=== PATIENT | female | born 1985 | race Caucasian/White ===

== ENCOUNTER → 2017-01-29 | Outpatient (CLI) | payer OTHER ==
[~2017-01-29] MED LIST: BCPILLS PO; BND25 PO; CHL4 PO; COLE1TAB PO; FLUO40CA8 PO; METF500T PO; MONT1TAB3 PO; MULTTAB58 PO; OMEP20CA9 PO
[2017-01-29 13:43] LABS: ALT/SGPT 143 U/L (12-78); BLOOD UREA NITROGEN 11 mg/dl (7-18); BUN/CREATININE RATIO 19.8 (10-20); CALCIUM 8.8 mg/dl (8.5-10.1); CARBON DIOXIDE 22 mmol/L (21-32); CHLORIDE 106 mmol/L (98-107); CHOLESTEROL 251 mg/dl (0-200); CREATININE 0.55 mg/dl (0.60-1.20); GLUCOSE 86 mg/dl (70-99); POTASSIUM 3.8 mmol/L (3.5-5.1); SODIUM 137 mmol/L (136-145); TRIGLYCERIDES 164 mg/dl (0-150); VERY LOW DENSITY LIPOPROT CALC 33 mg/dl
[2017-01-29 13:47] LABS: ALB/GLOB RATIO 0.7 (0.9-2); ALKALINE PHOSPHATASE 60 U/L (45-117); AST/SGOT 164 U/L (15-37); CHOLESTEROL/HDL RATIO 7.2; HDL CHOLESTEROL 35 mg/dl; LDL CHOLESTEROL CALCULATED 183 mg/dl
== END | disposition home or self-care (01) ==
LOC: C.LAB 11:59
PROVIDERS: ATTEND Nurse Practitioner
DX: Z00.00 Encounter for general adult medical examination without abnormal findings (principal)

== ENCOUNTER → 2017-06-19 | Day surgery (SDC) | payer OTHER ==
[2017-06-08 11:15] VITALS: Ht 167.6 cm; Wt 128.2 kg
[~2017-06-19] VITALS: Ht 167.6 cm; Wt 128.2 kg
[~2017-06-19] MED LIST changes: -BND25 PO; -CHL4 PO; +CHLO4TAB PO; -COLE1TAB PO; +HYDR-5688 PO; +HYDROCODONE/ACETAMIN 5/325MG TAB PO PRN; +LIDOCAINE HCL 1% 20 ML VIAL ONE; -OMEP20CA9 PO; +PRAZ2CAP2 PO; +PRT/20 PO; +SODIUM CHLORIDE 0.9% 1000ML 1,000 ML IV SCH; +TOPI25TA99 PO; +VNTHFA/IN INH
--- NOTE | 2017-06-19 06:50 | History & Physical Bridge - [place] ---
H&P Re-Evaluation Bridge Note: I have examined the patient, reviewed the History & Physical and in the interval since the performance of the History & Physical I have noted the following changes of clinical significance: No changes noted ASA 2
--- NOTE | 2017-06-19 07:36 | [facility] Operative Report ---
Operative Report Operative Date Jun 19, 2017. Pre-Operative Diagnosis epidermal cyst Post-Operative Diagnosis same Procedure(s) Performed excision epidermal cyst/ sebaceous cyst Surgeon Puckett Findings small cyst Anesthesia local Complication(s) None Disposition Recovery Room / PACU I attest to the content of the Intraoperative Record and any orders documented therein. Any exceptions are noted below.
[2017-06-19 07:38] VITALS: PULSE 80; TEMP 37.1
--- NOTE | 2017-06-19 07:41 | Discharge Instructions-SurgCtr ---
Discharge Instructions Date of Service Jun 19, 2017. Visit Reason for Visit: Epidermal Inclusion Cyst, Back Discharge Discharge Diagnosis / Problem: epidermal cyst Discharge Goals Goal(s): Decrease discomfort, Improve function, Improve disease control Activity Recommendations Activity Limitations: as noted below Lifting Limitations: no more than 25 pounds Exercise/Sports Limitations: until after follow-up appointment May Resume Sexual Activity: when tolerated Shower/Bathe: tomorrow Driving or Machine Use: no limitations Anesthesia . Post Anesthesia Instructions: If you have had General Anesthesia or IV Sedation: * Do not drive today. * Resume driving when surgeon permits. * Do not make important decisions or sign legal documents today. * Call surgeon for: 1. Temperature elevations greater than 101 degrees F. 2. Uncontrollable pain. 3. Excessive bleeding. 4. Persistent nausea and vomiting. 5. Medication intolerance (nausea, vomiting or rash). * For nausea and vomiting use only clear liquids such as: tea, soda, bouillon until nausea subsides, then gradually increase diet as tolerated. * If you have any concerns or questions, call your surgeon's office. If physician is unavailable and it is an emergency, call 911 or go to the nearest emergency room. . Instructions / Follow-Up Instructions / Follow-Up SPECIAL CARE INSTRUCTIONS: * Cover incisions and change daily for comfort/drainage. * May use ibuprofen for pain as tolerated. * Expect some swelling and bruising. Call your doctor if: * Temperature above 101 degrees * Pain not relieved by pain medicine ordered * There is increased drainage or redness from any incision * You have any unanswered questions or concerns [phone]. FOLLOW UP VISIT: If not already scheduled, please call the office for a follow-up visit. for next week- some suture removal OFFICE PHONE NUMBER: Dr. Puckett Office Diet Recommendations Home Diet: resume previous diet Procedures Procedures Performed: excision epidermal cyst/ sebaceous cyst Pending Studies Studies pending at discharge: no Medical Emergencies . Who to Call and When: Medical Emergencies: If at any time you feel your situation is an emergency, please call 911 immediately. . Non-Emergent Contact Non-Emergency issues call your: Primary Care Provider, Surgeon . . "Provider Documentation" section prepared by Payam Puckett. .
[2017-06-19 07:53] VITALS: BP 115/58; O2SAT 97
--- NOTE | 2017-06-19 07:58 | OPERATIVE REPORT ---
DATE OF OPERATION: 06/19/2017 PREOPERATIVE DIAGNOSIS: Epidermal cyst. POSTOPERATIVE DIAGNOSIS: Same. NAME OF OPERATION: Excision of epidermal cyst. STAFF SURGEON: Dr. Puckett. ANESTHESIA: 1% plain lidocaine. PROCEDURE: The patient was brought in the operating room and placed on the operating table in the prone position. Her left upper back was prepped and draped in usual fashion. A 2 cm elliptical incision was made around the area of the cyst, carrying dissection down into the subcutaneous tissue, excising the skin and subcutaneous tissue with the cyst. Deep tissue was reapproximated after appropriate hemostasis using 2-0 chromic suture then the skin reapproximated using 5-0 Prolene suture. Dressing applied and patient transferred to recovery area in stable condition. I attest to the content of the Intraoperative Record and any orders documented therein. Any exception s are noted below.
== END | disposition home or self-care (01) ==
LOC: X.SURG 06:11
PROVIDERS: ATTEND Surgery
DX: L72.0 Epidermal cyst (principal); J45.909 Unspecified asthma, uncomplicated; F32.9 Major depressive disorder, single episode, unspecified; K21.9 Gastro-esophageal reflux disease without esophagitis; F51.12 Insufficient sleep syndrome; K58.9 Irritable bowel syndrome, unspecified; E66.01 Morbid (severe) obesity due to excess calories; G47.33 Obstructive sleep apnea (adult) (pediatric); Z80.0 Family history of malignant neoplasm of digestive organs; Z81.8 Family history of other mental and behavioral disorders; Z83.3 Family history of diabetes mellitus; Z80.42 Family history of malignant neoplasm of prostate

== ENCOUNTER → 2017-08-17 | Outpatient (CLI) | payer OTHER ==
[~2017-08-17] MED LIST changes: -HYDROCODONE/ACETAMIN 5/325MG TAB PO PRN; -LIDOCAINE HCL 1% 20 ML VIAL ONE; -SODIUM CHLORIDE 0.9% 1000ML 1,000 ML IV SCH
[2017-08-19 14:22] LABS: ANA SCREEN TC 249X NEGATIVE (NEGATIVE)
== END | disposition home or self-care (01) ==
LOC: C.LAB 14:01
PROVIDERS: ATTEND Family Medicine
DX: M25.50 Pain in unspecified joint (principal)

== ENCOUNTER → 2017-08-28 | Outpatient (CLI) | payer OTHER ==
[2017-08-28 17:50] LABS: TRANSFERRIN 328 mg/dl (200-360)
[2017-09-03 03:31] LABS: ANA SCREEN TC 249X NEGATIVE (NEGATIVE); ANTI-SS-A <1.0 NEG AI (<1.0 NEG); ANTI-SS-B <1.0 NEG AI (<1.0 NEG); COMPLEMENT C3 TC 44859W 211 MG/DL (90-180); COMPLEMENT C4 TC 44982E 27 MG/DL (16-47); PARVOVIRUS IgM INDEX 0.1 (<0.9)
== END | disposition home or self-care (01) ==
LOC: C.LAB1850 16:30
PROVIDERS: ATTEND Internal Medicine Rheumatology
DX: R70.0 Elevated erythrocyte sedimentation rate (principal); M13.0 Polyarthritis, unspecified; R19.7 Diarrhea, unspecified

== ENCOUNTER → 2017-09-11 | Outpatient (CLI) | payer OTHER ==
--- NOTE | 2017-09-11 13:55 | DIAGNOSTIC IMAGING REPORT ---
R HAND MIN 3 VIEWS ROUTINE, L HAND MIN 3 VIEWS ROUTINE CLINICAL HISTORY: 32 years-old Female presenting with M13.0 arthritis. TECHNIQUE: Frontal, oblique, and lateral views of the right and left hands were obtained. COMPARISON: None. FINDINGS: Right hand: No acute fracture or malalignment. No advanced degenerative change. No radiographic soft tissue abnormality. Left hand: No acute fracture or malalignment. No advanced degenerative change. No radiographic soft tissue abnormality. IMPRESSION: No osseous abnormality of the right or left hands. Electronically signed by: Hector Vasquez M.D. 09/11/2017 1:54 PM Dictated Date/Time: 09/11/2017 1:52 PM
== END | disposition home or self-care (01) ==
LOC: C.LAB1850 13:24
PROVIDERS: ATTEND Internal Medicine Rheumatology
DX: M13.0 Polyarthritis, unspecified (principal); R82.90 Unspecified abnormal findings in urine

== ENCOUNTER 2024-02-17 08:23 | Observation (INO) ==
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
[2024-02-17] MEDS: SODIUM CHLORIDE 0.9% 1,000 ML IV SCH ×2 (09:01→10:33)
[2024-02-17 09:16] LABS: iSTAT Creatinine 0.5 mg/dl (0.6-1.3); iSTAT Ionized Calcium 1.04 mmol/l (1.12-1.32); iSTAT Potassium 4.9 mmol/L (3.3-5.0)
[2024-02-17] MEDS: OPTIRAY 320 100ml IV ONE (09:18)
--- NOTE | 2024-02-17 09:39 | CT Scan Report ---
CT abd pelvis IV con only CLINICAL HISTORY: lower abd pain, hypotension TECHNIQUE: Helical axial images of the abdomen and pelvis were obtained and displayed. Automated dose lowering techniques and/or adjustment according to patient size were utilized for this exam. This e xam was performed with intravenous contrast. CT DOSE: 1541.86 mGy.cm COMPARISON: None available at the time of this dictation. FINDINGS: Lower chest: No acute abnormality. Liver: Unremarkable. No focal lesions are seen. Gallbladder and biliary tree: No calcified gallstones. Normal caliber wall. No intra- or extrahepatic biliary ductal dilation. Pancreas: Unremarkable, no focal lesions. Spleen: Unremarkable. Adrenals: Unremarkable. Kidneys and ureters: Unremarkable. Bladder: Limited evaluation due to underdistention. Reproductive organs: Unremarkable. Bowel: The appendix measures 16 mm with thickening of the appendiceal wall. Postsurgical changes of g astric bypass surgery are seen with a small hiatal hernia. Lymph nodes Retroperitoneal: Subcentimeter lymph nodes are noted. Pelvic: Unremarkable. Mesenteric: Unremarkable. Peritoneum: Fat stranding is seen about the appendix without pneumoperitoneum or drainable fluid tyrese ection. Vessels: Unremarkable. Abdominal wall: Unremarkable. Bones: Degenerative changes in the visualized spine. IMPRESSION: Findings compatible with acute appendicitis. No evidence of perforation or abscess formation. ACT 112: Negative or not required by law. Electronically signed by: Herbie Owen M.D. 02/17/2024 9:37 AM
[2024-02-17 09:40] LABS: Basophils # (auto) 0.02 K/uL (0.00-0.20); Basophils % (auto) 0.1 %; Eosinophils # (auto) 0.01 K/uL (0.00-0.50); Eosinophils % (auto) 0.1 %; Hematocrit (blood only) 39.7 % (37.0-47.0); Hemoglobin 12.8 g/dl (12.0-16.0); Immature Granulocytes # (auto) 0.09 K/uL (0.01-0.20); Immature Granulocytes % (auto) 0.5 %; Lymphocytes # (auto) 0.94 K/uL (1.20-3.40); Lymphocytes % (auto) 5.7 %; Mean Corpuscular Hemoglobin 28.4 pg (25.0-34.0); Mean Corpuscular Hgb Conc 32.2 g/dL (32.0-36.0); Mean Corpuscular Volume 88.2 fL (80.0-100.0); Mean Platelet Volume 10.5 fL (9.4-12.4); Monocytes # (auto) 0.71 K/uL (0.11-0.59); Monocytes % (auto) 4.3 %; Neutrophils # (auto) 14.82 K/uL (1.40-6.50); Neutrophils % (auto) 89.3 %; Platelet Count 261 K/uL (130-400); RDW Coefficient of Variation 12.3 % (11.5-14.5); RDW Standard Deviation 39.9 fL (36.4-46.3); White Blood Count 16.59 K/ul (4.8-10.8)
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
[2024-02-17 09:51] LABS: Pregnancy Test, Serum Negative (Negative)
[2024-02-17] MEDS: PIPERACILLIN/TAZOBACTAM 4.5 GM/100 ML BAG IV ONE (09:55)
[2024-02-17 09:57] LABS: Albumin Globulin Ratio 1.5 (0.9-2); Albumin Level 3.8 gm/dl (3.4-5.0); BUN Creatinine Ratio 24.2 (10-20); Bilirubin,Total 0.4 mg/dl (0.2-1.0); Calcium 8.1 mg/dl (8.6-10.3); Creatinine Clr Calc Pharmacy 142.3 ml/min; Est GFR (African American) 133.5 ml/min; Est GFR (Non-African American) 115.2 ml/min; Globulin 2.5 gm/dl (2.5-4.0); Magnesium 1.7 mg/dl (1.7-2.4); Potassium 3.7 mmol/L (3.5-5.1); Total Protein 6.3 gm/dl (6.0-8.3)
[2024-02-17] MEDS: fentaNYL citrate PF 100 MCG/2 ML VIAL IV STA ×2 (09:59→11:15)
[2024-02-17 10:09] LABS: Partial Thromboplastin Ratio 0.8; Partial Thromboplastin Time 22 Seconds (21-31); Prothrombin Time 10.8 Seconds (9.0-12.0)
[2024-02-17] MEDS ORDERED: ONDANSETRON INJ 2 MG/ML 2 ML VIAL IV PRN ×2 (11:36→14:42)
[2024-02-17] MEDS ORDERED: ATROPINE SULFATE 0.1 MG/ML 10ML SYR IV PRN (11:36)
[2024-02-17] MEDS ORDERED: HYDROmorphone INJ 1 MG/ML SYRINGE IV PRN (11:36)
[2024-02-17] MEDS ORDERED: ePHEDrine sulfate 50 MG/ML AMP IV PRN (11:36)
[2024-02-17] MEDS ORDERED: fentaNYL citrate PF 100 MCG/2 ML VIAL IV PRN (11:36)
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
[2024-02-17] MEDS ORDERED: MIDAZOLAM HCL 1 MG/ML 2ML VIAL ONE (12:08)
[2024-02-17] MEDS ORDERED: fentaNYL citrate PF 100 MCG/2 ML VIAL ONE (12:08)
[2024-02-17] MEDS ORDERED: SUGAMMADEX SODIUM 200 MG/2 ML VIAL IV ONE (13:23)
--- NOTE | 2024-02-17 13:33 | Operative Report ---
PG Post Operative Report Pre & Post Diagnosis Operation Date: 02/17/24 08:20 Pre-Op Diagnosis: Acute Appendicitis Post-Op Diagnosis: Acute Appendicitis I identified the patient and participated in the time-out.: Yes Procedure Operation Date: 02/17/24 08:20 Actual Procedures p Laparoscopic Appendectomy(Not Applicable) - Hong Seo DO Surgeon Hong Seo DO Food Critic meagan arzate Estimated Blood Loss 5 Findings Consistent with Post-Op Diagnosis Specimens appendix Description of Procedure After informed consent was obtained the patient was taken to the operating room and placed in supine position. After successful intubation a Wright catheter was placed and the left arm was tucked. I began by making a periumbilical incision with an 11 blade scalpel and carried this down through the soft tissue using electrocautery. The anterior rectus fascia was opened using electrocautery and 2 #0 Vicryl stay sutures were placed. The peritoneum was elevated using hemostats and incised under direct vision using a Metzenbaum scissor. A finger sweep was performed. A 12 mm Hanna trocar was placed and the abdomen was insufflated to 18 mmHg. A laparoscope was inserted and the abdomen was examined in 360. A suprapubic 5 mm port and a left lower quadrant 12 mm port were placed under direct vision. The patient was air planed to the left as well as placed in a slight Trendelenburg position. We began by looking in the right lower quadrant. We were able to readily identify the appendix and it was grossly inflamed. It had not perforated. There was a moderate to large amount of purulent fluid in the right lower quadrant and the pelvis. We immediately irrigated and suctioned this out. I was able to use primarily blunt dissection to pull the appendix away from the right lower quadrant sidewall. I was then able to use a JJUU brown cartridge stapler to transect first the mesentery of the appendix followed by using a purple cartridge 60 mm stapler to transect the appendix itself at its base with the cecum. It was then placed into an Endo Catch bag and removed from the camera port site. We thoroughly irrigated the right lower quadrant as well as the pelvis. There was adequate hemostasis. I ran the small bowel backwards from the terminal ileum for about 6 feet all of which was normal. All the peritoneal surfaces were normal. Small/ large bowel, liver, stomach etc. all appeared grossly normal. We did a final irrigation and then removed all the trochars and desufflated the abdomen. The fascia of the camera port as well as the left lower quadrant were closed using 0 Vicryl in [id number] fashion. Wounds were all irrigated and closed using 4-0 Monocryl. Marcaine was injected around them for postoperative analgesia and skin glue used as a dressing. The patient was awakened extubated and transferred to recovery in stable condition. My CUSTOMER RETENTION REPRESENTATIVE trading assistant was present through the entire case. She assisted with prepping the patient and helped with exposure for port placement, helped run the camera and helped with fascial/wound closure at the end of the procedure as well as dressing placement. I attest to the content of the Intraoperative Record and any orders documented therein. Any exceptions are noted below. I attest to the content of the Intraoperative Record and any orders documented therein. Any exceptions are noted below.
[2024-02-17] MEDS ORDERED: DEXAMETHASONE SOD INJ 4 MG/ML VIAL ONE (13:45)
[2024-02-17] MEDS ORDERED: PROPOFOL IV EMULSION 10 MG/ML 20 ML VIAL IV ONE (13:45)
[2024-02-17] MEDS ORDERED: ONDANSETRON INJ 2 MG/ML 2 ML VIAL ONE (13:45)
[2024-02-17] MEDS ORDERED: PHENYLEPHRINE HCL 10 MG/ML VIAL ONE (13:45)
[2024-02-17] MEDS ORDERED: KETOROLAC 30 MG/ML VIAL ONE (13:45)
[2024-02-17] MEDS ORDERED: ROCURONIUM BROMIDE 10 MG/ML 5 ML VIAL IV ONE (13:45)
[2024-02-17] MEDS ORDERED: LIDOCAINE 2% 2 ML VIAL/AMP(20MG/ML) INFIL ONE (13:45)
--- NOTE | 2024-02-17 14:29 | Anesthesiology Progress Note ---
Date of Service February 17, 2024 Anesthesia Post Procedure Vital Signs Vital Signs: Temp Pulse Pulse Pulse Resp BP BP 02/17/24 14:20 101 H 16 02/17/24 14:10 103 H 18 02/17/24 14:00 100 H 20 02/17/24 13:50 98 H 15 02/17/24 13:40 99 H 18 02/17/24 13:35 36.2 C L 116 H 20 02/17/24 11:50 36.8 C 98 H 18 02/17/24 11:32 84 22 98/61 L 02/17/24 10:42 84 22 02/17/24 10:30 98/61 L 02/17/24 10:30 79 15 98/61 L 02/17/24 10:03 70 16 90/52 L 02/17/24 10:00 75 14 90/52 L 02/17/24 09:36 74 02/17/24 09:30 91 H 17 101/57 L 02/17/24 09:24 94 H 28 H 104/52 L 02/17/24 09:09 87 24 02/17/24 09:00 72 22 94/61 L 02/17/24 08:58 81 22 02/17/24 08:52 02/17/24 08:24 36.5 C 87 24 84/51 L BP Pulse Ox O2 Del Method O2 Flow Rate 02/17/24 14:20 101/50 L 95 Room Air 02/17/24 14:10 100/50 L 93 Room Air 02/17/24 14:00 101/61 94 Oxymask 6 02/17/24 13:50 116/55 L 96 Oxymask 6 02/17/24 13:40 121/67 97 Oxymask 6 02/17/24 13:35 121/61 97 Oxymask 6 02/17/24 11:50 116/83 96 Room Air 02/17/24 11:32 98 Room Air 02/17/24 10:42 98 02/17/24 10:30 02/17/24 10:30 99 Room Air 02/17/24 10:03 99 02/17/24 10:00 99 Room Air 02/17/24 09:36 02/17/24 09:30 99 Room Air 02/17/24 09:24 100 Room Air 02/17/24 09:09 98 Room Air 02/17/24 09:00 99 Room Air 02/17/24 08:58 96/55 L 100 Room Air 02/17/24 08:52 62/52 L Room Air 02/17/24 08:24 98 Room Air Pain Intensity Abdomen: Pain Intensity: 3 Transfer of Care Handoff Completed per policy Notes Mental Status: alert / awake / arousable and participated in evaluation Patient Amnestic to Procedure: Yes Nausea / Vomiting: adequately controlled Pain: adequately controlled Airway Patency, RR, SpO2: stable & adequate BP & HR: stable & adequate Hydration State: stable & adequate Anesthetic Complications: no major complications apparent and Pt Satisfied with anesthetic care
[2024-02-17] MEDS: BUPIVACAINE/EPINEPHRINE 0.5% MPF 1:200,000 30 ML VIAL ONE (14:30)
[2024-02-17] MEDS ORDERED: MoRPHine SULFATE 2 MG/ML CARP IV PRN (14:42)
[2024-02-17] MEDS ORDERED: oxyCODONE HCL IR 5 MG TAB (IMMEDIATE RELEASE) PO PRN (14:42)
[2024-02-17] MEDS: LACTATED RINGER'S 1,000 ML IV SCH (15:03)
[2024-02-17] MEDS: ACETAMINOPHEN 1,000 MG/100 ML VIAL IV SCH (15:53)
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
--- OUTSIDE RECORDS SUMMARY | 2024-02-17 15:58 | External Medical Summary | Continuity of Care Document ---
Author Name Unknown Organization [id number] Address [address] [place] [id number] Care Team Providers Care Press Clipper Name Role Phone Layne Martell Primary Care Physician [phone] [id number] Date(s): 12/29/23 - 12/29/23 [facility] [address] [id number] [facility] [address] [place] [id number] Encounter Diagnosis Bilateral primary osteoarthritis of knee(Discharge Diagnosis) - 12/29/23 Discharge Disposition: Home or Self Care Attending Physician: DO Fraga Mehwish Allergies, Adverse Reactions, Alerts Substance Criticality Severity Reaction Reaction Severity Status benzocaine topical tongue swelling Active salicylic acid topical rash Active Phenergan Active Zyrtec rash Active Latex Active Allergy Not found in Search 1, 2 Active 1sunscreen 2avocado Assessment and Plan Extracted from: Title:Office Visit Note Author:DO Fraga Me hwish Date:12/29/23 Bilateral primary osteoarthr itis of knee Risks and benefits of the procedure were discussed. Patient would like to proceed with the injection, see procedure note below. Return precautions discussed. Follow-up in 1 week for Orthovisc #3 Procedurenote: Risks, benefits, indications, and alternatives of Orthovis injection of bilateral kneeswas discussed. Consent was obtained per clinic protocol. Time out was performed per [facility] protocol. With the patient in a seated position, the lateral joint line ofthe leftknee was prepped with chloraprep. Ethyl chloride was used for skin anesthesia. A 22gauge needle was inserted into the lateral joint line of theleftknee. Confirmation of placement within the joint was confirmed by aspirating a small amount of joint fluid.Thejoint was then injected with 2mL ofOrthovisc.The patient tolerated the procedure well and there were no complications.Area was cleaned and a Band-Aid was applied. Patient tolerated the procedure well. The same procedure was then repeated on the contralateral side.With the patient in a seated position, the lateral joint line ofthe rightknee was prepped with chloraprep. Ethyl chloride was used for skin anesthesia. A 22gauge needle was inserted into the lateral joint line of therightknee. Confirmation of placement within the joint was confirmed by aspirating a small amount of joint fluid.Thejoint was then injected with 2mL ofOrthovisc.Area wascleaned and a Band-Aid was applied.With the patient in a seated position, the lateral joint line ofthe rightknee was prepped with chloraprep. Ethyl chloride was used for skin anesthesia. A 22gauge needle was inserted into the lateral joint line of therightknee. Confirmation of placement within the joint was confirmed by aspirating a small amount of joint fluid.Thejoint was then injected with 2mL ofOrthovisc.Area wascleaned and a Band-Aid was applied. Immunizations Given and Recorded Vaccine Date Status [...] estradiol-norethindrone 35 mcg-1 mg oral tablet Start: 12/30/23 1:35:00 PM EDT, 1 tab, PO, Daily, Disp# 84 tab, Refills: 0, Pharmacy: [id number] Start Date: 12/30/23 Status: Ordered Eucrisa 2% topical ointment Start: 02/22/19 2:28:00 PM EDT, 1 appl, topical, bid, Disp# 60 g, Refills: 0, wash hands thoroughly after application Aplly a thin film, Pharmacy: [id number] Start Date: 02/22/19 Status: Ordered [...] to physician's office: [address]. [address] [place] [address], [place] [address], Note to Pharmacy: B/L KNEE DJD M17.0, Pharmacy: [facility] Start Date: 03/30/23 Stop Date: 04/20/23 Status: Ordered FLUoxetine 40 mg oral capsule Start: 06/08/23 1:50:00 PM EST, 1 cap, PO, Daily, Disp# 30 cap, Refills: 11, Pharmacy: [id number] Start Date: 06/08/23 Status: Ordered Keflex 500 mg oral capsule Start: 06/08/23 1:59:00 PM EST, 1 cap, PO, tid, Disp# 21 cap, Pharmacy: [id number] Start Date: 06/08/23 Stop Date: 06/15/23 Status: Ordered Macrobid 100 mg oral capsule Start: 02/26/23 7:59:00 AM EDT, 1 cap, PO, bid, Disp# 10 cap, Refills: 0, Pharmacy: [id number] Start Date: 02/26/23 Status: Ordered montelukast 10 mg oral tablet Start: 06/08/23 1:50:00 PM EST, 1 tab, PO, qPM, Disp# 30 tab, Refills: 10, Pharmacy: [id number] Start Date: 06/08/23 Status: Ordered multivitamin Start: 03/13/20 9:05:00 AM EDT, 1 tab, PO, Daily Start Date: 03/13/20 Status: Ordered Orthovisc 30 mg/2 mL intra-articular solution Start: 11/06/23 11:58:00 AM EDT, 30 mg =, intra-articular, q7days, Disp# 12 mL, Refills: 0, B/L KNEEDJD M17.0, Note to Pharmacy: 6 syringes for B/L knees. Please ship to physician's office: Lisette Feldman [address]ato. [address] [place] [address], Pharmacy: [facility] Start Date: 11/06/23 Stop Date: 11/27/23 Status: Ordered oxyBUTYnin 5 mg/24 hours oral tablet, extended release Start: 06/25/23 10:54:00 AM EST, 1 tab, PO, Daily, Disp# 30 tab, Refills: 1, Pharmacy: [id number] Start Date: 06/25/23 Status: Ordered Pirmella 1/35 oral tablet Start: 06/08/23 1:50:00 PM EST, See Instructions, Disp# 112 tab, Refills: 3, TAKE 1 TABLET DAILY FOR 21 DAYS. SKIP PLACEBOS AND START NEXT PACK, Pharmacy: [facility] Start Date: 06/08/23 Status: Ordered triamcinolone 0.5% topical ointment Start: 05/13/19 11:20:00 AM EST, 1 appl, topical, qid, Disp# 1 tube, Refills: 3, apply a thin film to affected area, Pharmacy: [id number] Start Date: 05/13/19 Stop Date: 09/10/19 Status: Ordered Xanax 0.5 mg oral tablet Start: 05/13/21 12:45:00 PM EST, 1 tab, PO, bid, Disp# 135 tab, Refills: 1, PRN: as needed for anxiety, Pharmacy: [facility] Start Date: 05/13/21 Stop Date: 11/09/21 Status: Ordered Mental Status 12/29/23 Barriers to Learning one year None evide [...] Effective Dates Health Status Clinical Service Informant Bilateral primary osteoarthritis of knee Discharge Diagnosis 12/29/23 Non-Specified Procedures Procedure Date Related Diagnosis Body [...] Event Display: Ortho Outpt Note Authored Date: [id number] Chief Complaint Orthovisc injection #2 History of Present Illness Erinis a 38-year-old female who presents forOrthovisc#2 of 3her bilateral knees. She did not have any issues following injections last week. Physical Exam Bilateral knees: There is no erythema, ecchymosis or edemaat planned injection site. Assessment/Plan Bilateral primary osteoarthritis of knee Risks and benefits of the procedure were discussed. Patient would like to proceed with the injection, see procedure note below. Return precautions discussed. Follow-up in 1 week for Orthovisc #3 Procedurenote: Risks, benefits, indications, and alternatives of Orthovis injection of bilateral kneeswas discussed. Consent was obtained per clinic protocol. Time out was performed per [facility] protocol. With the patient in a seated position, the lateral joint line ofthe leftknee was prepped with chloraprep. Ethyl chloride was used for skin anesthesia. A 22gauge needle was inserted into the lateral joint line of theleftknee. Confirmation of placement within the joint was confirmed by aspirating a small amount of joint fluid.Thejoint was then injected with 2mL ofOrthovisc.The patient tolerated the procedure well and there were no complications.Area was cleaned and a Band-Aid was applied. Patient tolerated the procedure well. The same procedure was then repeated on the contralateral side.With the patient in a seated position, the lateral joint line ofthe rightknee was prepped with chloraprep. Ethyl chloride was used for skin anesthesia. A 22gauge needle was inserted into the lateral joint line of therightknee. Confirmation of placement within the joint was confirmed by aspirating a small amount of jointfluid.Thejoint was then injected with 2mL ofOrthovisc.Area wascleaned and a Band-Aid was applied.With the patient in a seated position, the lateral joint line ofthe rightknee was pre pped with chloraprep. Ethyl chloride was used for skin anesthesia. A 22gauge needle was inserted into the lateral joint line of therightknee. Confirmation of placement within the joint was confirmed by aspirating a small amount of joint fluid.Thejoint was then injected with 2mL ofOrthovi sc.Area wascleaned and a Band-Aid was applied. 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 Exercise Duration (average number of minutes):20 Times per week:Daily Exercise type:Walking - Comments: Goes to [employer] 3x week for 30-45 minutes Home/Environment Lives [...] Recommendations Health Maintenance Pending(in the next year) Due Adult Influenza Vaccine due12/27/23and every 1year Adult COVID-19 Vaccination due12/29/23Unknown Frequency Adult Folic Acid Supplementation due12/29/23and every 3year Adult Social Determinants of Health Screening due12/29/23Unknown Frequency Hepatitis C Screening due12/29/23One-time only Due In Future Body Mass Index not due until11/03/24and every 366day Satisfied(in the past 1 year) Satisfied Body Mass Index on11/03/23.Satisfied by [facility] Goldstein [facility] Cervical Cancer Screening on06/11/23.Satisfied by SYSTEM Electronic Signature on File Electronically Reviewed/Signed by: Viktoriya Fraga DO Author Signature Dt/Tm:12/29/2023 09:23 AM Division of Sports Medicine MM Patient Care team information Care Team Personnel Name: DO Martell Kristen M Position: Physician - Family Med Member Role: Primary Care Provider Address: Address: [address] [place] [address] Name: Charles Ramirez Position: HIS Supervisor_P Member Role: HIS Lifetime Care Team Related Persons Name: KAMINI COELHO Address: home [address] [facility] [place] [phone] Name: JUSTO LAWTON Address: home [address] [place] [id number]"
--- OUTSIDE RECORDS SUMMARY | 2024-02-17 15:58 | External Medical Summary | Continuity of Care Document ---
Author Name Unknown Organization [place] [id number] Address [address] [place] [id number] Care Team Providers Care Paint Department Supervisor Name Role Phone Layne Martell Primary Care Physician [id number] Date(s): 12/22/23 - 12/22/23 [facility] [address] [place] [id number] [facility] [address] [place] [id number] Encounter Diagnosis Bilateral primary osteoarthritis of knee(Discharge Diagnosis) - 12/22/23 Bilateral knee pain(Discharge Diagnosis) - 12/22/23 Discharge Disposition: Home or Self Care Attending Physician: DO Fraga Mehwish Allergies, Adverse Reactions, Alerts Substance Criticality Severity Reaction Reaction Severity Status benzocaine topical tongue swelling Active salicylic acid topical rash Active Phenergan Active Zyrtec rash Active Latex Active Allergy Not found in Search 1, 2 Active 1sunscreen 2avocado Assessment and Plan Extracted from: Title:Office Visit Note Author:DO Fraga Me hwish Date:12/22/23 1.Bilateral primary osteoa rthritis of knee 2.Bilateral knee pain Patient did havea response to the iovera procedure, thoughher pain scoresare lower than they wereprior to the procedure, but not significantly more than 50%and definitely not for the anticipated 3 months. Based on these results, I do not think repeat iovera procedure would be helpful for her in the future. Her lastset of Euflexxa injections were completedin May 2023, so we will proceed withbilateral hyaluronic acid gel injections today. She has had Orthoviscprescribed. Aftercare and return precautions discussed. Will plan to follow-upweekly for the next 2 weeks forsubsequent injections. Procedurenote: Risks, benefits, indications, and alternatives of Orthovis injection of bilateral kneeswas discussed. Consent was obtained per clinic protocol. Time out was performed per [facility] protocol. With the patient in a seated [...] ofOrthovisc.Area wascleaned and a Band-Aid was applied. The same procedure was then repeated on the contralateral side. With the patient in a seated position, the lateral joint line ofthe leftknee was prepped with chloraprep. Ethyl chloride was used for skin anesthesia. A 22gauge needle was inserted into the lateral joint line of theleftknee. Confirmation of placement within the joint was confirmed by aspirating a small amount of joint fluid.Thejoint was then injected with 2mL ofOrthovisc. The patient tolerated the procedure well and there were no complications.Area was cleaned and a Band-Aid was applied. Patient tolerated the procedure well. We will plan to follow-up in 1 week. Immunizations Given and Recorded Vaccine Date Status [...] Daily, Disp# 84 tab, Refills: 3, [facility] Start Date: 07/03/23 Status: Ordered Eucrisa 2% topical ointment Start: 02/22/19 2:28:00 PM EDT, 1 appl, topical, bid, Disp# 60 g, Refills: 0, wash hands thoroughly after application Aplly a thin film, Pharmacy: [id number] Start Date: 02/22/19 [...] knees. Please ship to physician's office: Lisette Hemphill. [place]. [address] [place] [address], [place] [address], Note to Pharmacy: B/L KNEE DJD M17.0, Pharmacy: [facility] Start Date: 03/30/23 Stop Date: 04/20/23 Status: Ordered FLUoxetine 40 mg oral capsule Start: 06/08/23 1:50:00 PM EST, 1 cap, PO, Daily, Disp# 30 cap, Refills: 11, Pharmacy: [id number] Start Date: 06/08/23 Status: Ordered Keflex 500 mg oral capsule Start: 06/08/23 1:59:00 PM EST, 1 cap, PO, tid, Disp# 21 cap, Pharmacy: [id number] Start Date: 06/08/23 Stop Date: 06/15/23 Status: Ordered Macrobid 100 mg oral capsule Start: 02/26/23 7:59:00 AM EDT, 1 cap, PO, bid, Disp# 10 cap, Refills: 0, Pharmacy: [id number] Start Date: 02/26/23 Status: Ordered montelukast 10 mg oral tablet Start: 06/08/23 1:50:00 PM EST, 1 tab, PO, qPM, Disp# 30 tab, Refills: 10, Pharmacy: [id number] Start Date: 06/08/23 [...] to physician's office: [address]. [place]. [address] [place] [address], [place] [address], Pharmacy: [facility] Start Date: 11/06/23 Stop Date: 11/27/23 Status: Ordered oxyBUTYnin 5 mg/24 hours oral tablet, extended release Start: 06/25/23 10:54:00 AM EST, 1 tab, PO, Daily, Disp# 30 tab, Refills: 1, Pharmacy: [id number] Start Date: 06/25/23 Status: Ordered Pirmella 1/35 oral tablet Start: 06/08/23 1:50:00 PM EST, See Instructions, Disp# 112 tab, Refills: 3, TAKE 1 TABLET DAILY FOR 21 DAYS. SKIP PLACEBOS AND START NEXT PACK, [facility] Start Date: 06/08/23 Status: Ordered triamcinolone 0.5% topical ointment Start: 05/13/19 11:20:00 AM EST, 1 appl, topical, qid, Disp# 1 tube, Refills: 3, apply a thin film to affected area, Pharmacy: [id number] Start Date: 05/13/19 Stop Date: 09/10/19 Status: Ordered Xanax 0.5 mg oral tablet Start: 05/13/21 12:45:00 PM EST, 1 tab, PO, bid, Disp# 135 tab, Refills: 1, PRN: as needed for anxiety, [facility]acy: [facility] Start Date: 05/13/21 Stop Date: 11/09/21 Status: Ordered Mental Status 12/22/23 Barriers to Learning one year None evide nt Mandatory Health Literacy Documentation Yes Health Literacy Communication Barriers N ever Primary Language Sinhala Problem List Condition Confirmation Course Effective Dates [...] Dates Health Status Clinical Service Informant Bilateral knee pain Discharge Diagnosis 12/22/23 Non-Specified Bilateral primary osteoarthritis of knee Discharge Diagnosis 12/22/23 Non-Specified Procedures Procedure Date Related Diagnosis Body [...] Event Display: Ortho Outpt Note Authored Date: [id number] Chief Complaint F/U Left knee Iovera History of Present Illness Erinis a 38-year-old female who presents for follow-up of bilateral knee iovera. She notes thatpain in both knees returned this past week. She notes that she feels like she gotmore reliefwith the ioveraprocedure on herright kneeas her pain did not return until last weekand her procedure was completedat the end of October. She did not have any issues followingthe procedure. She notes occasional soreness over theISNtreatment line. Posttreatment questionnaire Stiffness 7/10 Pain with twisting 4/10 Pain with knee extension 4/10 Pain with stairs 6/10 Pain standing upright 3/10 Difficulty with rising from sitting 4/10 Difficulty with bending to the floor 3/10 She notes that her hyaluronic acid gel injectionshave been received and she is interested in having those completedsooner rather than later. Shewasscheduled in January for them, but givenher pain she iswondering if we can do them sooner. Physical Exam Bilateral knees:Procedure siteson the ioveraare healing well. There is no ecchymosis. There is no erythema, ecchymosis overplanned injection sites today. Assessment/Plan 1.Bilateral primary osteoarthritis of knee 2.Bilateral knee pain Patient did havea response to the iovera procedure, thoughher pain scoresare lower than they wereprior to the procedure, but not significantly more than 50%and definitely not for the anticipated 3 months. Based on these results, I do not think repeat iovera procedure would be helpful for her in the future. Her lastset of Euflexxa injections were completedin May 2023, so we will proceed withbilateral hyaluronic acid gel injections today. She has had Orthoviscprescribed. Aftercare and return precautions discussed. Will plan to follow-upweekly for the next 2 weeks forsubsequent injections. Procedurenote: Risks, benefits, indications, and alternatives of Orthovis injection of bilateral kneeswas discussed. Consent was obtained per clinic protocol. Time out was performed per [facility] protocol. With the patient in a seated [...] ofOrthovisc.Area wascleaned and a Band-Aid was applied. The same procedure was then repeated on [...] joint fluid.Thejoint was then injected with 2mL ofOrthovisc. The patient tolerated the procedure welland there were no complications.Area was cleaned and a Band-Aid was applied. Patient tolerated the procedure well. We will plan to follow-up in 1 week. 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 Exercise Duration (average number of minutes):20 Times per week:Daily Exercise type:Walking - Comments: Goes to [employer] 3x week for 30-45 minutes Home/Environment Lives [...] due12/26/22and every 1year Due Adult COVID-19 Vaccination due12/22/23Unknown Frequency Adult Folic Acid Supplementation due12/22/23and every 3year Adult Social Determinants of Health Screening due12/22/23Unknown Frequency Hepatitis C Screening due12/22/23One-time only Due In Future Body Mass Index not due until11/03/24and every 366day Satisfied(in the past 1 year) Satisfied Body Mass Index on11/03/23.Satisfied by SALAZAR Goldstein Mary Cervical Cancer Screening on06/11/23.Satisfied by SYSTEM Electronic Signature on File Electronically Reviewed/Signed by: Viktoriya Fraga DO Author Signature Dt/Tm:12/22/2023 03:21 PM Division of Sports Medicine MM Patient Care team information Care Team Personnel Name: DO Martell Kristen M Position: Physician - Family Med Member Role: Primary Care Provider Address: Address: [address] [place] [address] Name: Charles Ramirez Position: HIS Supervisor_P Member Role: HIS Lifetime Care Team Related Persons Name: KAMINI COELHO Address: home [address] [facility] [place] [phone] Name: JUSTO LAWTON Address: home [address] [place] [id number]"
--- OUTSIDE RECORDS SUMMARY | 2024-02-17 15:58 | External Medical Summary | Continuity of Care Document ---
Author Name Unknown Organization [facility] [address] [place] [address] Address [address] [place] [phone] Care Team Providers Care Sheriff Sergeant Name Role Phone Layne Martell Primary Care Physician [phone] [facility] [facility] [id number] Date(s): 09/28/23 - 09/28/23 [facility] [address] [facility] [address] [facility] [address] [place] [id number] Encounter Diagnosis Bilateral primary osteoarthritis of knee(Discharge Diagnosis) - 09/28/23 Discharge Disposition: Home or Self Care Attending Physician: VIR[place]IA Miller Dennis Allergies, Adverse Reactions, Alerts Substance Reaction Severity Status benzocaine topical tongue swelling Active salicylic acid topical rash Activ e Phenergan Active Zyrtec rash Active Latex Active Allergy Not found in Search 1, 2 Active 1sunscreen 2avocado Immunizations Given and Recorded Vaccine Date Status [...] Daily, Disp# 84 tab, Refills: 3, Pharmacy: [facility] Start Date: 07/03/23 Status: Ordered Eucrisa [...] B/L knees. Please ship to physician's office: [facility] Brandee Hemphill. [facility]. [address] [place] [address], [place] [address], Note to Pharmacy: B/L KNEE DJD M17.0, [...] SKIP PLACEBOS AND START NEXT PACK, Pharmacy: [facility] Start Date: 06/08/23 Status: Ordered triamcinolone [...] 1, PRN: as needed for anxiety, Pharmacy: [facility] Start Date: 05/13/21 Stop Date: 11/09/21 Status: Ordered Mental Status 09/28/23 Barriers to Learning one year None evide nt Mandatory Health Literacy Documentation Yes Health Literacy Communication Barriers N ever Primary Language Sammarinese Problem List Condition Confirmation Course Effective Dates [...] Bilateral primary osteoarthritis of knee Discharge Diagnosis 09/28/23 Procedures Procedure Date Related Diagnosis Body Site [...] Status Never smoked cigaret vicenta Sex Female Patient Care team information Care Team Personnel Name: DO Martell Kristen M Position: Physician - Family Med Member Role: Primary Care Provider Address: Address: [address] [place] [address] Name: Charles Ramirez Position: HIS Supervisor_P Member Role: HIS Lifetime Care Team Related Persons Name: KAMINI COELHO Address: home [address] [facility] [place] [id number] Name: JUSTO LAWTON Address: home [address] [place] [id number]
--- OUTSIDE RECORDS SUMMARY | 2024-02-17 15:58 | External Medical Summary | Continuity of Care Document ---
Author Name Unknown Organization [facility] [address] [place] [address] Address [address] [place] [id number] Care Team Providers Care Scientific Systems Analyst Name Role Phone Layne Martell Primary Care Physician [phone] [facility] [id number] Date(s): 11/17/23 - 11/17/23 [facility] [address] [employer] [place] [id number] [facility] [address] [place] [id number] Encounter Diagnosis Bilateral primary osteoarthritis of knee(Discharge Diagnosis) - 11/17/23 Right knee pain(Discharge Diagnosis) - 11/17/23 Discharge Disposition: Home or Self Care Attending Physician: DO Fraga Mehwish Allergies, Adverse Reactions, Alerts Substance Criticality Severity Reaction Reaction Severity Status benzocaine topical tongue swelling Active salicylic acid topical rash Active Phenergan Active Zyrtec rash Active Latex Active Allergy Not found in Search 1, 2 Active 1sunscreen 2avocado Assessment and Plan Extracted from: Title:Office Visit Note Author:DO Fraga Me hwish Date:11/17/23 1.Bilateral primary osteoa rthritis of knee 2.Right knee pain Risks and benefits of the procedure were discussed. Patient would like to proceed with theprocedure, see procedure note below. She does not have any contraindicationsto the iovera procedure. We will plan to follow-upin a couple of weeks as scheduled for iovera procedure of the left knee. Iovera Procedure Note Preprocedure diagnosis: Aright knee arthritis Postprocedure diagnosis:Same Primary procedure: Therapeutic cryoneurolysis (Iovera)procedure of the right knee Anesthesia type:Local Physician: Viktoriya Fraga DO, CAQSM Blood loss:<2ml Indication:Chronic rightknee pain Verbal consent was obtained. Risks and benefits [...] target nerve landmark lines were identifiedon the right kneeand drawn out according to Iovera protocol. Over the AFCN treatment line this includes2 nerves- the medial branch of the anterior femoral cutaneous nerve and an intermediate branch of theanteriorfemoral cutaneous nerve. And over the ISN treatment line,this includes 2 nerves- the superior branch of the infrapatellar branch of saphenous nerve andthe inferiorbranch of the infrapatellarbranch of the saphenous nerve. A timeout was performed.The area was cleansed with an alcohol prep padand ChloraPrep. Both target nerve landmark lines were injected with a total of 8mL of 1% lidocaine without epinephrine. The right knee was thenprepped with chloraprep. Thereafter under sterile fashion using the iovera handpiece with a smart tip 309, a series of overlapping injections were made alongthe identified nerve branches of the AFCN and the treatment line of ISNemploying a cryoneurolytic injection pulse of -88 Cwith each injection cycle lasting 63 seconds with 28 injection cycles required to cover both target nerve landmarks. Thereafter, sterile dressings were applied to both injection sites. The patient tolerated the procedure well without complication was discharged in stable condition. Post-procedure instructions were provided andreviewed. Immediately following the procedure- Posttreatment questionnaire Pain withtwisting 2/10 Pain withstraightening knee2/10 Pain with stairs 3/10 Pain with standing upright 2/10 Difficulty with rising from sitting 1/10 Difficulty with bending to the floor 2/10 Immunizations Given and Recorded Vaccine Date Status [...] after application Aplly a thin film, Pharmacy: [id number] Start Date: 02/22/19 Status: [...] physician's office: [address] [place] [address], Note to Pharmacy: B/L KNEE DJD M17.0, Pharmacy: [facility] [place] Start Date: 03/30/23 Stop Date: 04/20/23 Status: Ordered FLUoxetine 40 mg oral capsule Start: 06/08/23 1:50:00 PM EST, 1 cap, PO, Daily, Disp# 30 cap, Refills: 11, Pharmacy: [id number] Start Date: 06/08/23 Status: Ordered Keflex 500 mg oral capsule Start: 06/08/23 1:59:00 PM EST, 1 cap, PO, tid, Disp# 21 cap, Pharmacy: [id number] Start Date: 06/08/23 Stop Date: 06/15/23 Status: Ordered Macrobid 100 mg oral capsule Start: 02/26/23 7:59:00 AM EDT, 1 cap, PO, bid, Disp# 10 cap, Refills: 0, Pharmacy: [id number] Start Date: 02/26/23 Status: Ordered montelukast 10 mg oral tablet Start: 06/08/23 1:50:00 PM EST, 1 tab, PO, qPM, Disp# 30 tab, Refills: 10, Pharmacy: [id number] Start Date: 06/08/23 Status: [...] to physician's office: [address] [place] [address], Pharmacy: [facility] [place] Start Date: 11/06/23 Stop Date: 11/27/23 Status: Ordered oxyBUTYnin 5 mg/24 hours oral tablet, extended release Start: 06/25/23 10:54:00 AM EST, 1 tab, PO, Daily, Disp# 30 tab, Refills: 1, Pharmacy: [id number] Start Date: 06/25/23 Status: [...] a thin film to affected area, Pharmacy: [id number] Start Date: 05/13/19 Stop Date: 09/10/19 Status: Ordered Xanax 0.5 mg oral tablet Start: 05/13/21 12:45:00 PM EST, 1 tab, PO, bid, Disp# 135 tab, Refills: 1, PRN: as needed for anxiety, Pharmacy: [facility] Start Date: 05/13/21 Stop Date: 11/09/21 Status: Ordered Mental Status 11/17/23 Barriers to Learning one year None evide nt Mandatory Health Literacy Documentation Yes Health Literacy Communication Barriers N ever Primary Language Tamazight Problem List Condition Confirmation Course Effective Dates [...] Bilateral primary osteoarthritis of knee Discharge Diagnosis 11/17/23 Non-Specified Right knee pain Discharge Diagnosis 11/17/23 Non-Specified Procedures Procedure Date Related Diagnosis Body [...] Event Display: Ortho Outpt Note Authored Date: [id number] Chief Complaint Iovera Right knee History of Present Illness Pamela is [id number] female who presents forright knee Iovera procedure. Physical Exam Right knee: There is no erythema, ecchymosis or edema at planned procedure site. Assessment/Plan 1.Bilateral primary osteoarthritis of knee 2.Right knee pain Risks and benefits of the procedure were discussed. Patient would like to proceed with theprocedure, see procedure note below. She does not have any contraindicationsto the iovera procedure. We will plan to follow-upin a couple of weeks as scheduled for iovera procedure of the left knee. Iovera Procedure Note Preprocedure diagnosis: Aright knee arthritis Postprocedure diagnosis:Same Primary procedure: Therapeutic cryoneurolysis (Iovera)procedure of the right knee Anesthesia type:Local Physician: Viktoriya Fraga DO, CAQSM Blood loss:<2ml Indication:Chronic rightknee pain Verbal consent was obtained. Risks and benefits [...] target nerve landmark lines were identifiedon the right kneeand drawn out according to Iovera protocol. Over the AFCN treatment line this includes2 nerves- the medial branch of the anterior femoral cutaneous nerve and an intermediate branch of theanteriorfemoral cutaneous nerve. And over the ISN treatment line,this includes 2 nerves- the superior branch of the infrapatellar branch of saphenous nerve andthe inferiorbranch of the infrapatellarbranch of the saphenous nerve. A timeout was performed.The area was cleansed with an alcohol prep padand ChloraPrep. Both target nerve landmark lines were injected with a total of 8mL of 1% lidocaine withoutepinephrine. The right knee was thenprepped with chloraprep. Thereafter under sterile fashionusing the iovera handpiece with a smart tip 309, a series of overlapping injections were made alongthe identified nerve branches of the AFCN and the treatment line of ISNemploying a cryoneurolytic injection pulse of -88 Cwith each injection cycle lasting 63 seconds with 28 injection cycles required to cover both target nerve landmarks. Thereafter, sterile dressings were applied to both injection sites. The patient tolerated the procedure well without complication was discharged in stable condition. Post-procedure instructions were provided andreviewed. 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 Exercise Duration (average number of minutes):20 Times per week:Daily Exercise type:Walking - Comments: Goes to [employer] 3x week for 30-45 minutes Home/Environment Lives [...] due12/26/22and every 1year Due Adult COVID-19 Vaccination due11/17/23Unknown Frequency Adult Folic Acid Supplementation due11/17/23and every 3year Adult Social Determinants of Health Screening due11/17/23Unknown Frequency Hepatitis C Screening due11/17/23One-time only Due In Future Body Mass Index not due until11/03/24and every 366day Satisfied(in the past 1 year) Satisfied Body Mass Index on11/03/23.Satisfied by SALAZAR Goldstein Mary Cervical Cancer Screening on06/11/23.Satisfied by SYSTEM Electronic Signature on File CC: Elfego Miller PA-C [facility] [facility] [address] Electronically Reviewed/Signed by: Viktoriya Fraga DO Author Signature Dt/Tm:11/17/2023 04:53 PM Division of Sports Medicine MM Patient Care team information Care Team Personnel Name: DO Martell Kristen M Position: Physician - Family Med Member Role: Primary Care Provider Address: Address: [address] [place] [address] Name: Charles Ramirez Position: HIS Supervisor_P Member Role: HIS Lifetime Care Team Related Persons Name: KAMINI COELHO Address: home [address] [facility] [place] [phone] Name: JUSTO LAWTON Address: home [address] [place] [id number]"
--- OUTSIDE RECORDS SUMMARY | 2024-02-17 15:58 | External Medical Summary | Continuity of Care Document ---
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 Sports Medicine [address] [place] [id number] Encounter Diagnosis Left knee pain(Discharge Diagnosis) - [...] Daily, Disp# 84 tab, Refills: 3, Pharmacy: [facility] Start Date: 07/03/23 Status: Ordered Eucrisa 2% topical ointment Start: 02/22/19 2:28:00 PM EDT, 1 appl, topical, bid, Disp# 60 g, Refills: 0, wash hands thoroughly after application Aplly a thin film, Pharmacy: [id number] Start Date: 02/22/19 [...] to physician's office: [address] 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, Pharmacy: [facility] Start Date: 03/30/23 Stop Date: 04/20/23 Status: Ordered FLUoxetine 40 mg oral capsule Start: 06/08/23 1:50:00 PM EST, 1 cap, PO, Daily, Disp# 30 cap, Refills: 11, Pharmacy: [id number] Start Date: 06/08/23 Status: Ordered Keflex 500 mg oral capsule Start: 06/08/23 1:59:00 PM EST, 1 cap, PO, tid, Disp# 21 cap, Pharmacy: [id number] Start Date: 06/08/23 Stop Date: 06/15/23 Status: Ordered Macrobid 100 mg oral capsule Start: 02/26/23 7:59:00 AM EDT, 1 cap, PO, bid, Disp# 10 cap, Refills: 0, Pharmacy: [id number] Start Date: 02/26/23 Status: Ordered montelukast 10 mg oral tablet Start: 06/08/23 1:50:00 PM EST, 1 tab, PO, qPM, Disp# 30 tab, Refills: 10, Pharmacy: [id number] Start Date: 06/08/23 [...] physician's office: [address] [place] [place] [address], Pharmacy: [facility] Start Date: 11/06/23 Stop Date: 11/27/23 Status: Ordered oxyBUTYnin 5 mg/24 hours oral tablet, extended release Start: 06/25/23 10:54:00 AM EST, 1 tab, PO, Daily, Disp# 30 tab, Refills: 1, Pharmacy: [id number] Start Date: 06/25/23 Status: Ordered Pirmella 1/35 oral tablet Start: 06/08/23 1:50:00 PM EST, See Instructions, Disp# 112 tab, Refills: 3, TAKE 1 TABLET DAILY FOR 21 DAYS. SKIP PLACEBOS AND START NEXT PACK, Pharmacy: [facility] Start Date: 06/08/23 Status: Ordered triamcinolone 0.5% topical ointment Start: 05/13/19 11:20:00 AM EST, 1 appl, topical, qid, Disp# 1 tube, Refills: 3, apply a thin film to affected area, Pharmacy: [id number] Start Date: 05/13/19 Stop Date: 09/10/19 Status: Ordered Xanax 0.5 mg oral tablet Start: 05/13/21 12:45:00 PM EST, 1 tab, PO, bid, Disp# 135 tab, Refills: 1, PRN: as needed for anxiety, Pharmacy: [facility] Start Date: 05/13/21 Stop Date: 11/09/21 Status: Ordered Mental Status 12/01/23 Barriers to Learning one year None evide nt Mandatory Health Literacy Documentation Yes Health Literacy Communication Barriers N ever Primary Language Qatari Problem List Condition Confirmation Course Effective Dates [...] Event Display: Ortho Outpt Note Authored Date: [id number] Chief Complaint Iovera left knee History of [...] times per year Employment/School Status:Employed 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 Exercise Duration (average number of minutes):20 Times per week:Daily Exercise type:Walking - Comments: Goes to [employer] 3x week for 30-45 minutes Home/Environment Lives [...] Signature on File CC: Elfego Miller PA-C [address] [facility] [address] [id number] Electronically Reviewed/Signed by: Viktoriya Fraga DO Author Signature Dt/Tm:12/01/2023 09:01 AM Division of Sports Medicine MM Patient Care team information Care Team Personnel Name: DO Martell Kristen M Position: Physician - Family Med Member Role: Primary Care Provider Address: Address: [address] [place] [id number] [place] Name: Charles Ramirez Position: HIS Supervisor_P Member Role: HIS Lifetime Care Team Related Persons Name: KAMINI COELHO Address: home [address] [facility] [place] [phone] Name: JUSTO LAWTON Address: home [address] [facility] [facility] [place] [phone]"
[2024-02-17] MEDS: PIPERACILLIN/TAZOBACTAM 4.5 GM/100 ML BAG IV SCH (16:15)
[2024-02-17 17:30] LABS: Appearance Urine Clear (Clear); Bilirubin Urine Negative (Negative); Blood Urine Negative (Negative); Color Urine Yellow; Glucose Urine UA Negative (Negative); Ketones Urine Negative (Negative); Leukocyte Esterase Urine Negative (Negative); Nitrite Urine Negative (Negative); Protein Urine Negative (Negative); Specific Gravity Urine 1.013 (1.000-1.030); Urobilinogen Urine Negative (Negative)
[2024-02-17] MEDS: MoRPHine SULFATE 4 MG/ML 1 ML CARP\\VIAL IV PRN (21:03)
[2024-02-18] MEDS: oxyCODONE HCL IR 5 MG TAB (IMMEDIATE RELEASE) PO PRN (03:53)
[2024-02-18 07:15] VITALS: RESP 18
[2024-02-18 07:46] LABS: Basophils # (auto) 0.02 K/uL (0.00-0.20); Basophils % (auto) 0.1 %; Eosinophils # (auto) 0.01 K/uL (0.00-0.50); Eosinophils % (auto) 0.1 %; Hematocrit (blood only) 33.4 % (37.0-47.0); Hemoglobin 10.9 g/dl (12.0-16.0); Immature Granulocytes # (auto) 0.14 K/uL (0.01-0.20); Immature Granulocytes % (auto) 0.8 %; Lymphocytes # (auto) 1.32 K/uL (1.20-3.40); Lymphocytes % (auto) 7.8 %; Mean Corpuscular Hemoglobin 28.5 pg (25.0-34.0); Mean Corpuscular Hgb Conc 32.6 g/dL (32.0-36.0); Mean Corpuscular Volume 87.2 fL (80.0-100.0); Monocytes # (auto) 0.79 K/uL (0.11-0.59); Monocytes % (auto) 4.7 %; Neutrophils # (auto) 14.66 K/uL (1.40-6.50); Neutrophils % (auto) 86.5 %; Platelet Count 212 K/uL (130-400); RDW Coefficient of Variation 12.9 % (11.5-14.5); RDW Standard Deviation 40.9 fL (36.4-46.3); Red Blood Count 3.83 M/uL (4.20-5.40); White Blood Count 16.94 K/ul (4.8-10.8)
[2024-02-18 08:19] LABS: BUN Creatinine Ratio 13.6 (10-20); Creatinine Clr Calc Pharmacy 133.6 ml/min; Est GFR (African American) 130.8 ml/min; Est GFR (Non-African American) 112.9 ml/min; Potassium 3.4 mmol/L (3.5-5.1)
[2024-02-18] MEDS: FLUoxetine HCL 20 MG CAP PO SCH (08:33)
[2024-02-18] MEDS: MONTELUKAST SODIUM 10 MG TABLET PO SCH (08:33)
[2024-02-18] MEDS: POTASSIUM CHLORIDE CRTAB 20 MEQ TABCR PO STA (08:51)
--- NOTE | 2024-02-18 10:11 | Discharge Summary ---
Date of Service February 18, 2024 Admission HPI Per Admitting Provider This is a 38yF with a PMH of RYGB in 2018 in [place] who presents to the [facility] on 02/17/24 with complaints of abdominal pain. Patient says it started around 3am and she could not get comfortable [id number]. This was associated with nausea, no emesis. She had some BMs without relief. She says her pain is primarily in the lower abdomen, more so on the right side, rating it an 8-9/10 in severity. Given her symptoms she presented to the ER for further evaluation. A CT a/p was obtained for workup that revealed acute appendicitis. No evidence of perforation or abscess formation. Had some dizziness/lightheadedness that are now resolved. No chest pain or SOB. PSH RYGB, no other major medical issues. Last ate food yesterday and had a small sip of ice-tea prior to arrival. Principal Diagnosis acute appendicitis Discharge Exam awake, alert Constitutional well developed and well nourished Respiratory normal respiratory effort Gastrointestinal (Abdomen) Inspection/Auscultation: abdomen not distended Percussion/Palpation: abdomen soft Musculoskeletal no cyanosis or clubbing, extremities motor strength 5/5 Discharge Data Allergies Allergy/AdvReac Type Severity Reaction Status Date / Time avocado Allergy Severe ANAPHYLAXIS Verified 02/17/24 11:44 benzocaine Allergy Severe TONGUE Verified 02/17/24 11:44 SWELLS cetirizine Allergy Intermediate RASH Verified 02/17/24 11:44 promethazine Allergy Intermediate VOMITING Verified 02/17/24 11:44 AND RASH latex AdvReac Intermediate RASH Verified 02/17/24 11:44 SUN SCREEN Allergy Unknown "rash" Uncoded 02/17/24 11:44 Procedures Performed Operation Date: 02/17/24 08:20 Actual Procedures p Laparoscopic Appendectomy(Not Applicable) - Hong Seo, Ordered Studies 02/17/24 08:34 CT abd pelvis IV con only Stat Hospital Course (1) Acute appendicitis: This is a 38 yo female who presented to the [facility] on 02/17/24 with abdominal pain. Workup in the ED showed a WBC of [address] a/p concerning for acute appendicitis. The patient was tender to palpation in the RLQ. Patient made NPO with IVF and booked for the OR. On 02/17/24 the patient went to the OR with Dr. Seo for a laparoscopic appendectomy. The patient tolerated the procedure well, see operative report for full details. Post operatively the patient's diet was advanced, pain managed on prn medication, and incisions clean/dry/intact. On POD one 02/18/24 the patient was deemed stable for discharge to home. She was given discharge instruction, return precautions and follow up recommendations and sent home with an oral prescriptions for an antibiotic and narcotic pain medication. Total Time Total Time Spent Total Time Spent (In Minutes): 10 Discharge Plan Discharge Items Patient Disposition: Home - Self-Care Reason For Visit: S/P LAP APPY Discharge Diagnosis: laparoscopic appendectomy Condition on Discharge: Good Activity: Per Instructions section Lifting: No more than 10 pounds Bathing Comment: may shower starting 02/18/24; no soaking in tubs/pools x 2 weeks Exercise/Sports: Wait until after follow-up appointment Driving/Machine Use: no driving while on narcotics for pain Non-emergency contact: Surgeon Call non-emergency contact if: you have any medication questions, your symptoms worsen, your pain is worsening, you have a fever, your temperature is above 101.5, your wound has increased redness, your wound has increased drainage and your wound pain has increased Follow-up/Referrals: Hong Seo DO [Surgeon] - 03/02/24 11:30 am (Will be in new buildin [address] at [place]) Layne Martell DO [Primary Care Provider] - Diet: Regular Addtl Attending Provider Instructions: You have skin glue over your incisions called dermabond. you may shower with this on. It will tend to dissolve and fall off within a couple weeks. Do not pick at the skin glue You may purchase Ibuprofen over the counter if needed for additional pain control over the next few days. Take per manufacturers instructions Please complete the full course of antibiotic prescribed to you Pending Studies at Discharge: Yes Studies:: surgical pathology Stand-Alone Forms: My [facility] Medications and DC Order Prescriptions: New oxycodone-acetaminophen [Percocet] 5-325 mg tablet 1 - 2 tab PO .q4-6h PRN (Reason: pain, for initial therapy, max 6 tabs per day) Qty: 15 0RF amoxicillin-pot clavulanate 875-125 mg tablet 1 tab PO BID Qty: 10 0RF Continued fluoxetine 40 mg capsule 40 mg PO DAILY calcium carbonate 500 mg calcium (1,250 mg) Tablet 500 mg PO DAILY docusate sodium [Colace] 100 mg Capsule 100 mg PO DAILY PRN (Reason: Constipation) montelukast 10 mg tablet 10 mg PO DAILY magnesium 250 mg Tablet 250 mg PO DAILY Alyacen (28) 1-35 mg-mcg tablet 1 tab PO DAILY coenzyme Q10 [CoQ-10] 100 mg Capsule 100 mg PO DAILY cholecalciferol (vitamin D3) [Vitamin D3] 50 mcg (2,000 unit) Tablet 50 mcg PO DAILY Ozempic 0.25 mg or 0.5 mg (2 mg/3 mL) Pen Injector 0 mg SUBCUT WK Rx Instructions: Pt unsure of dose as it comes from a compounding pharmacy. But, they give her pre-filled 15units once weekly on Fridays Discharge Orders: Discharge Order (Routine); Ordered 02/18/24 Ordered By: Kelsey Patel/Other Patient Handouts: Appendectomy, What Is Appendicitis? Admission Data Admit Date/Time: 02/17/24 13:33 Attending Provider: Hong Seo Admit Provider: Hong Seo Primary Care Provider: Layne Martell Other Interventions: Discharge Summary Assessment (RN) Last Done: 02/18/24 11:31 Coding Level of Care Code 62980 IN/OBS DISCH 30 MIN/LESS Diagnoses Acute appendicitis K35.80
[2024-02-18 10:50] VITALS: BP 101/67; PULSE 81; TEMP 98.1; O2SAT 97
== END 2024-02-18 12:40 | disposition home or self-care (01) ==
LOC: ED 08:23 → 3N 11:35 → ASU 11:35 → 3N 11:50